=== PATIENT | male | born 1940 | race Two or more races ===

== ENCOUNTER → 2017-02-18 | Day surgery (SDC) | payer MEDICARE, OTHER ==
[~2017-02-18] MED LIST: ALEVE220 M1 PO; ASPIRIN81 M2 PO; KEFLEX500 M2; LIPITOR40 MG PO; LOPRESSOR PO; MIRALAX17 GM DOB; NORCO1 TAB 10/3 DOB; SUPER B COMPLEX1 CAP PO
--- NOTE | ~2017-02-18 | OR ---
Unit #: [id number] #: [id number] Patient: CATHERINE CANADA [id number] [address] [address] [id number] O MR#: [id number] NAME: CATHERINE CANADA ROOM: Date of Procedure: 02/18/2017 Admission Date: 02/18/2017 Surgeon: Neil Bingham M.D. : 1940 Attending Physician: Neil Bingham M.D. Primary Care Physician: Generic Doctor Not In System OPERATIVE REPORT PREOPERATIVE DIAGNOSES 1. Herniated nucleus pulposus. 2. Spinal stenosis. 3. Spondylolisthesis. 4. Degenerative facet disease. 5. Back pain. 6. Radiculopathy. POSTOPERATIVE DIAGNOSES 1. Herniated nucleus pulposus. 2. Spinal stenosis. 3. Spondylolisthesis. 4. Degenerative facet disease. 5. Back pain. 6. Radiculopathy. PROCEDURE PERFORMED Lumbar epidural steroid injection with intravenous sedation and fluoroscopic guidance for needle localization. INDICATIONS FOR PROCEDURE The patient is a 76-year-old male with back and bilateral lower extremity pain is felt to be due to the previously mentioned diagnosis, most significant pathology at L4-L5 with severe facet disease, degenerative spondylolisthesis, disk extrusion with significant spinal stenosis. Plan is for a trial of epidural steroids. If the epidurals do not work, facet injections might be considered based on the intensity of the pathology in those areas. DESCRIPTION OF PROCEDURE The patient was placed in a prone position. Standard monitors were applied. 2 mg of Versed were given for sedation and anxiolysis, which were adequate. Vital signs remained stable. Sterile prep and drape then of the lumbar area was performed. The skin then at the L5 level was localized with 1% lidocaine. An 18-gauge [employer] needle was then advanced via loss of resistance technique and fluoroscopic guidance in toward the epidural space. The patient did not complain of any pain or paresthesia during needle advancement. After confirming proper positioning with fluoroscopy and radiographic contrast, 80 mg of Depo-Medrol and 6 mL of 0.125% bupivacaine were deposited. The patient tolerated the procedure otherwise well and was discharged to the recovery room in stable condition. Unit #: [id number] #: [id number] Patient: CATHERINE CANADA Dictated by... Mary Reyna/wilian TD: 02/19/2017 02:55 JOB #: [id number] OPERATIVE REPORT Page 1 of 1 X Neil Bingham MD X PROCEDURE OPERATIVE NOTE
== END | disposition home or self-care (01) ==
LOC: CCSC 09:14
DX: M51.16 Intervertebral disc disorders with radiculopathy, lumbar region (principal); M48.06 Spinal stenosis, lumbar region; M43.16 Spondylolisthesis, lumbar region
CPT/HCPCS: J1040; J2250

== ENCOUNTER → 2017-03-16 | Day surgery (SDC) | payer MEDICARE, OTHER ==
--- NOTE | ~2017-03-16 | OR ---
Unit #: [id number] #: [id number] Patient: CATHERINE CANADA [id number] [address] [address] [id number] O MR#: [id number] NAME: CATHERINE CANADA ROOM: Date of Procedure: 03/16/2017 Admission Date: 03/16/2017 Surgeon: Neil Bingham M.D. : 1940 Attending Physician: Neil Bingham M.D. Referring Physician: Everardo Boothe M.D. OPERATIVE REPORT PREOPERATIVE DIAGNOSES Back pain, radiculopathy, spinal stenosis, degenerative disk disease, lumbar disk herniation. POSTOPERATIVE DIAGNOSES Back pain, radiculopathy, spinal stenosis, degenerative disk disease, lumbar disk herniation. PROCEDURE PERFORMED Lumbar epidural steroid injection with intravenous sedation and fluoroscopic guidance for needle localization. INDICATIONS FOR PROCEDURE The patient is a 76-year-old male, who presented with back and bilateral lower extremity pain worsening over several years. He has multilevel multifactorial degenerative disk disease, disk herniations, and anterolisthesis with severe stenosis. Initial epidural steroid injection done a month ago resulted in significant improvement in all components of his pain. He still has some discomfort, so we are going to proceed with a repeat likely final injection at this point. The patient is going to go back to [place] for year or so, he is trying to make a treatment there or return here in the future if and when needed. DESCRIPTION OF PROCEDURE The patient was placed in a seated position. Standard monitors were applied. 2 mg of Versed were given for sedation and anxiolysis, which were adequate. Vital signs remained stable. Sterile prep and drape then of the lumbar area was performed. The skin then at the L4-L5 level was localized with 1% lidocaine. An 18-gauge [employer] needle was then advanced via loss of resistance technique and fluoroscopic guidance in toward the epidural space. After confirming proper positioning with fluoroscopy and radiographic contrast, 80 mg of Depo-Medrol and 4 mL of 0.125% bupivacaine were deposited. The patient tolerated the procedure otherwise well and was discharged to the recovery room in stable condition. Dictated by... Neil Bingham M.D. P/gretell Unit #: [id number] #: [id number] Patient: CATHERINE CANADA TD: 03/16/2017 23:52 JOB #: [id number] OPERATIVE REPORT Page 1 of 1 X Neil Bingham MD X PROCEDURE OPERATIVE NOTE
== END | disposition home or self-care (01) ==
LOC: CCSC 10:04
PROVIDERS: Pain Medicine Pain Medicine
PROC: 3E0S3BZ Introduction of Anesthetic Agent into Epidural Space, Percutaneous Approach (ICD-10-PCS; 2017-03-16)
PROC: 3E0S33Z Introduction of Anti-inflammatory into Epidural Space, Percutaneous Approach (ICD-10-PCS; principal; 2017-03-16 11:15)
DX: M51.16 Intervertebral disc disorders with radiculopathy, lumbar region (principal); M48.06 Spinal stenosis, lumbar region; M43.16 Spondylolisthesis, lumbar region; Z79.899 Other long term (current) drug therapy
CPT/HCPCS: J1040; J2250